=== PATIENT | male | born 1970 | race Caucasian/White ===

== ENCOUNTER 2016-11-02 09:40 | Emergency (ER) | payer BC ==
--- NOTE | ~2016-11-02 | ER ---
PATIENT'S NAME: BOGDAN BURNS [facility] AGE: 46 Y [address] ROOM: [place] [address] LOCATION: [facility] ADMIT DATE: 11/02/2016 ER/Outpatient Report DISCHARGE DATE: 11/02/2016 FAMILY PHYSICIAN: PHYSICIAN, NO ATTENDING PHYSICIAN: Yadiel Noble CHIEF COMPLAINT: Abdominal pain and foul-smelling stool. HISTORY OF PRESENT ILLNESS: Yesterday morning, around 4 a.m., Mr. Burns developed abdominal pain and vomiting. He has vomited twice including this morning. He also has had 2 episodes of foul-smelling diarrhea. He was unable to work yesterday and today he was feeling even worse. He has also had some dry heaves and some sweatiness associated with this. The stool he reports as just water. He has had no prior abdominal surgeries and does drink 4 to 5 beers daily, but has not been able to recently. He did work outside all weekend. He denies any other symptoms at this time. PAST MEDICAL HISTORY: Documented on the record and reviewed by me. SOCIAL HISTORY: Documented on the record and reviewed by me. MEDICATIONS: Documented on the record and reviewed by me. ALLERGIES: DOCUMENTED ON THE RECORD AND REVIEWED BY ME. REVIEW OF SYSTEMS: All systems reviewed and negative except as noted in the HPI. PHYSICAL EXAMINATION: VITAL SIGNS: Blood pressure 125/94, pulse 70, respiratory rate 18, temperature 96.0, and SpO2 is 98% on room air. Pain is rated 9/10. GENERAL: Age-appropriate male. Semi recumbent position on the exam table in obvious discomfort, but no apparent distress. NEUROLOGIC: Awake and alert. GCS 15. No focal deficits. No asymmetry. HEENT: Normocephalic and atraumatic. Eyes are PERRL. Oropharynx is clear. NECK: Supple. Trachea is midline. CHEST: Heart has regular rate and rhythm with no murmurs. Lungs are clear to auscultation bilaterally with no rhonchi, wheezes, or rales. ABDOMEN: With intermittent guarding, which is controllable. No palpable PATIENT'S NAME: BOGDAN BURNS [facility] AGE: 46 Y [address] ROOM: [place] [address] LOCATION: [facility] ADMIT DATE: 11/02/2016 ER/Outpatient Report DISCHARGE DATE: 11/02/2016 FAMILY PHYSICIAN: PHYSICIAN, NO ATTENDING PHYSICIAN: Yadiel Noble masses. No focal tenderness. Bowel sounds are present in all quadrants. Rovsing sign is negative. BACK: Normal to inspection and palpation. No CVA tenderness. EXTREMITIES: Warm and well perfused. SKIN: Clean, dry, and intact. LABORATORY DATA AND X-RAYS: Abdominal series with air, no appreciable abnormalities. CT of the abdomen normal per Radiology. CMS: No hepatobiliary or renal or electrolyte abnormalities appreciable. Amylase and lipase are within normal limits. Fecal occult blood test is negative. Lactate is 1.5. CBC with no abnormalities. INR is 1. Procalcitonin is undetectable. IMPRESSION: Abdominal pain, not otherwise specified, likely secondary to gastroenteritis. EMERGENCY DEPARTMENT COURSE: The patient was seen and evaluated as above. No evidence of gastrointestinal bleeding or other infection from a systemic standpoint at this time. The patient did have significant abdominal pain. Discussed possibility of ischemic bowel with Radiology, it is extremely unlikely at this time. The patient's abdominal exam was improved and remains nonsurgical. He was given morphine, Zofran, and fluids. He was feeling much better. He was mostly concerned about a history of rectal cancer in the family, which caused abdominal pain and . I do not think that is the case today. The patient did improve with some Bentyl for his abdominal spasms. In any case, I believe it is appropriate for the patient be discharged home. He was given prescription for Zofran and [place]. Work note was given. All questions were answered. The patient is to return if worse or follow up with PCP as needed. MD TABITHA BAINS/pancho /[id number] d: 11/02/162104 t: 11/22/164, OUTPATIENT REPORT
[2016-11-02 10:24] LABS: BASOPHIL % 0.6 %; EOSINOPHIL # 0.6 K/uL (0.0-0.5); EOSINOPHIL % 8.7 %; HEMATOCRIT 49.6 % (37.0-53.0); HEMOGLOBIN 16.9 g/dL (12.0-17.0); IMMATURE GRANULOCYTE % 0.3 %; LYMPHOCYTE % 30.3 %; MCH 33.4 pg (27.0-34.0); MCHC 34.1 gm/dL (32.0-36.5); MONOCYTE # 0.6 K/uL (0.0-1.0); MONOCYTE % 9.7 %; MPV 9.5 fl (9.4-12.4); NEUTROPHIL # (ANC) 3.3 K/uL (1.4-9.0); NEUTROPHIL % 50.4 %; NRBC % 0 /100WBC (0-0.00); PLATELET COUNT 242 K/uL (150-450); RBC 5.06 M/uL (4.00-6.00); RDW-CV 12.8 % (11.9-14.6); WBC 6.5 K/uL (4.0-11.0)
[2016-11-02 10:51] LABS: ALK PHOS 80 IU/L (33-138); ALT 29 IU/L (12-78); BLOOD UREA NITROGEN 11 mg/dL (6-24); CALCIUM 8.9 mg/dL (8.5-10.5); CHLORIDE 107 mMol/L (96-110); CO2 24 mMol/L (22-32); ESTIMATED GFR (MDRD EQUATION) > 60; SODIUM 140 mMol/L (135-145); TOTAL BILIRUBIN 0.5 mg/dL (0.0-1.5); TOTAL PROTEIN 7.4 g/dL (6.0-8.4)
[2016-11-02 10:55] LABS: ANION GAP 13.3 (10.0-19.0); AST 26 IU/L (10-40); POTASSIUM 4.3 mMol/L (3.7-5.1)
[2016-11-02 11:16] LABS: INR - (THERAPEUTIC) 1.01 (0.92-1.07); PROTIME 10.6 SECONDS (9.8-11.4); PTT 26 SECONDS (25-32)
== END 2016-11-02 12:12 | disposition disaster alternative care site (69) ==
LOC: GMED 09:40
PROVIDERS: Emergency Medicine
DX: K52.9 Noninfective gastroenteritis and colitis, unspecified (principal); R10.9 Unspecified abdominal pain; F17.220 Nicotine dependence, chewing tobacco, uncomplicated; Z98.890 Other specified postprocedural states
CPT/HCPCS: J0500; J2270; J2405; Q9967

== ENCOUNTER 2016-11-03 10:08 | Emergency (ER) | payer BC ==
--- NOTE | ~2016-11-03 | ER ---
PATIENT'S NAME: BOGDAN SPENCER [facility] AGE: 46 Y [address] ROOM: [place] [address] LOCATION: [facility] ADMIT DATE: 11/03/2016 ER/Outpatient Report DISCHARGE DATE: 11/03/2016 FAMILY PHYSICIAN: , NO ATTENDING PHYSICIAN: Flako Lacey Time of Arrival: 1008 hours. Time of Evaluation: 1012 hours. CHIEF COMPLAINT: Upper abdominal pain. HISTORY OF PRESENT ILLNESS: The patient is a 46-year-old male, who presents to the emergency department today with a chief complaint of upper abdominal pain. He reports this started on Tuesday, 2 days prior to arrival. He reports he was seen yesterday for the same symptoms. He reports he has been having nausea, vomiting, and diarrhea. He reports diarrhea has improved after he was seen yesterday. He reports he continues to have mid-epigastric abdominal pain. It is sharp. It is currently 7/10 in severity. The patient was seen and evaluated here in the emergency department. He had a very thorough workup which was unremarkable and sent home on [employer] He was written a note for limited duty. However, the patient reports he does not feel like he can work at all. PAST MEDICAL HISTORY: None. PAST SURGICAL HISTORY: Left lower extremity. SOCIAL HISTORY: The patient smokes 2 cigarettes a day. Drinks 4-5 beers in a day. Uses marijuana occasionally and also uses chewing tobacco. ALLERGIES: NO KNOWN DRUG ALLERGIES. MEDICATIONS: Please see list. PRIMARY CARE DOCTOR: None. REVIEW OF SYSTEMS: PATIENT'S NAME: BOGDAN SPENCER [facility] AGE: 46 Y [address] ROOM: [place] [address] LOCATION: ED ADMIT DATE: 11/03/2016 ER/Outpatient Report DISCHARGE DATE: 11/03/2016 FAMILY PHYSICIAN: PHYSICIAN, NO ATTENDING PHYSICIAN: Flako Lacey All systems are reviewed by myself and are negative with the exception of those discussed in the HPI and past medical history. PHYSICAL EXAMINATION: VITAL SIGNS: Weight 79.1 kg, blood pressure 146/89, pulse 67, respiratory rate 16, temperature 96.9, and oxygen saturation 99% on room air. GENERAL: The patient is a 46-year-old male, appears stated age. Well developed, well nourished, in no acute distress at this time. HEENT: Head is normocephalic and atraumatic. Mucous membranes are moist. NECK: Supple. There is no nuchal rigidity. CARDIOVASCULAR: Regular rate and rhythm. No murmurs, rubs, or gallops. LUNGS: Clear to auscultation bilaterally. No wheezes, rales, or rhonchi. ABDOMEN: Soft, mild midepigastric tenderness to palpation. There is no rebound, rigidity, or guarding. Positive bowel sounds. MUSCULOSKELETAL: The patient moves all 4 extremities. SKIN: Warm and dry. There are no rashes or lesions noted. LABORATORY DATA AND X-RAYS: Labs and x-rays are obtained. Procalcitonin is less than 0.05. Lactate is normal. CBC is normal. Amylase and lipase are normal. Chest x-ray is negative. EKG is obtained and interpreted by myself at 1050 shows sinus rhythm with a rate of 61, normal axis, normal interval. No ST elevation, ST depression, T- wave inversions. CMP is normal. LFT is normal. CK is 372. Cardiac enzymes are normal. Urinalysis is negative. H. pylori is negative. IMPRESSION: 1. Acute mid-epigastric abdominal pain, nonsurgical. 2. Initial visit. EMERGENCY DEPARTMENT COURSE: The patient was brought back to the examination room. Seen and evaluated by myself. IV is established. Laboratory analysis and imaging are obtained as described above. The patient's records are reviewed from previous visit. CT scan of the abdomen and pelvis was unremarkable. A KUB was also negative. Occult blood was negative. The patient denies any vomiting of blood, no dark PATIENT'S NAME: BOGDAN SPENCER [facility] AGE: 46 Y [address] ROOM: [place] [address] LOCATION: ED ADMIT DATE: 11/03/2016 ER/Outpatient Report DISCHARGE DATE: 11/03/2016 FAMILY PHYSICIAN: PHYSICIAN, NO ATTENDING PHYSICIAN: Flako Lacey tarry stools, no blood in the stool. I have discussed with the patient the results of the testing. The patient may have gastritis or potential ulcer. I have discussed this with him. I have recommended close followup with the Gastroenterology. A card has been provided. He is to call for an appointment. I have also discussed following up with primary care doctor. I have discussed the different options in the [place] area. I have written a prescription for Zofran and Carafate for home. I discussed [id number] instructions including worsening symptoms or any other concerns to return to the emergency department as soon as possible. The patient is agreeable without further questions at this time. DISPOSITION: The patient discharged home in good condition. DO CLOTILDE TORRES/modl /[id number] d: 11/03/162021 t: 11/04/16 1439, OUTPATIENT REPORT
[2016-11-03 10:37] LABS: BASOPHIL # 0.1 K/uL (0.0-0.2); BASOPHIL % 0.9 %; EOSINOPHIL # 0.6 K/uL (0.0-0.5); EOSINOPHIL % 10.9 %; IMMATURE GRANULOCYTE % 0.2 %; LYMPHOCYTE # 2.2 K/uL (0.8-4.0); LYMPHOCYTE % 37.1 %; MCHC 34.1 gm/dL (32.0-36.5); MCV 96.9 fl (83.0-98.0); MONOCYTE # 0.6 K/uL (0.0-1.0); MONOCYTE % 9.5 %; MPV 9.3 fl (9.4-12.4); NEUTROPHIL # (ANC) 2.4 K/uL (1.4-9.0); NEUTROPHIL % 41.4 %; NRBC % 0 /100WBC (0-0.00); PLATELET COUNT 214 K/uL (150-450); RBC 4.54 M/uL (4.00-6.00); RDW-CV 12.8 % (11.9-14.6); WBC 5.9 K/uL (4.0-11.0)
[2016-11-03 11:01] LABS: BILIRUBIN URINE NEGATIVE (NEGATIVE); BLOOD URINE NEGATIVE /UL (NEGATIVE); COLOR URINE YELLOW (YELLOW); GLUCOSE URINE NEGATIVE (NEGATIVE); KETONE URINE NEGATIVE (NEGATIVE); LEUKOCYTES URINE NEGATIVE /UL (NEGATIVE); NITRITE URINE NEGATIVE (NEGATIVE); PROTEIN URINE NEGATIVE (NEGATIVE); TURBIDITY URINE CLEAR (CLEAR); UROBILINOGEN URINE NORMAL (NORMAL)
[2016-11-03 11:03] LABS: ALBUMIN 3.5 gm/dL (3.5-5.0); ALK PHOS 62 IU/L (33-138); ALT 28 IU/L (12-78); ANION GAP 10.6 (10.0-19.0); AST 25 IU/L (10-40); BLOOD UREA NITROGEN 10 mg/dL (6-24); CALCIUM 8.1 mg/dL (8.5-10.5); CHLORIDE 107 mMol/L (96-110); CO2 24 mMol/L (22-32); CPK 372 IU/L (35-332); ESTIMATED GFR (MDRD EQUATION) > 60; POTASSIUM 3.6 mMol/L (3.7-5.1); SODIUM 138 mMol/L (135-145); TOTAL PROTEIN 6.7 g/dL (6.0-8.4)
[2016-11-03 11:06] LABS: TOTAL BILIRUBIN 0.2 mg/dL (0.0-1.5)
== END 2016-11-03 12:20 | disposition disaster alternative care site (69) ==
LOC: GMED 10:08
PROVIDERS: Emergency Medicine
DX: R10.13 Epigastric pain (principal); F17.210 Nicotine dependence, cigarettes, uncomplicated; F17.220 Nicotine dependence, chewing tobacco, uncomplicated; Z98.890 Other specified postprocedural states
CPT/HCPCS: J2001; J2405; J3010; J7030